=== PATIENT | female | born 1935 | race Caucasian/White ===

== ENCOUNTER 2016-10-19 10:38 | Observation (INO) | payer OTHER ==
[~2016-10-19] VITALS: Ht 160 cm; Wt 57.0 kg
[~2016-10-19 10:38] MED LIST: ALBUTEROL HFA60 DOSE IN; ALENDRONATE SOD70 MG PO; AMOXICILLIN500 M1 PO; CARDIZEM C1 PO; CARDIZEM C2 PO; DURAGESIC100 MCG/H TOP; HYDROXYCHLOROQ200 MG PO; HYDROXYZINE HCL25 MG PO; IPRATROPIUM BROMIDE/ IN; LEVOTHYROXINE25 MCG PO; O2 IN; PLAQUENIL200 M1 PO; PREDNISONE1 MG PO; PROAIR HFA IN; PROZAC10 MG PO; QVAR80 MCG IN; VICODIN EQUIVAL1 TAB PO; WARFARIN SODIU2.5 MG PO
--- NOTE | 2016-10-19 11:32 | DIAGNOSTIC IMAGING REPORT ---
PROCEDURE: XR CHEST 2 VIEW INDICATION: SHORTNESS OF BREATH TECHNIQUE: PA and lateral views. COMPARISON: Chest 07/18/2014 FINDINGS: The lungs are clear. Heart and mediastinum are normal. Tortuous descending aorta. There are fractures of the right lateral ninth and tenth ribs (previously documented).. IMPRESSION: 1. No evidence of acute process.
--- NOTE | 2016-10-19 13:02 | ED ORDER SUMMARY ---
..... Patient: LEONOR CASTANEDA OrderSheet [facility] VisitID: [id number] [place] [address] 80y, F Registration Date/Time: 10/19/2016 ORDER SHEET Weight: 54.8 kg (stated) Allergies: Benadryl, Codeine, Erythromycin GENERAL ORDERS: Chest 2V Urgent (:10/19/2016 PHutchinson DO) (Ack 11:11 Lizeth) (15:59 MCampbell) Chronic Condition Nurse (Continuous) (:10/19/2016 PHutchinson DO) (Ack 11:10 Lizeth) (11:25 Silva R.N.) UA-Culture if indicated Urgent (:10/19/2016 PHutchinson DO) (Ack 11:10 Lizeth) (Cancelled: Unable to [id number] Silva R.N.) Cardiac Panel Stat (:10/19/2016 PHutchinson DO) (Ack 11:10 Arturonandez) (12:19 Silva R.N.) BNP Urgent (:10/19/2016 PHutchinson DO) (Ack 11:10 Arturonandez) (12:19 Silva R.N.) Amylase Urgent (:10/19/2016 PHutchinson DO) (Ack 11:10 Arturonandez) (12:19 Silva R.N.) TSH Urgent (:10/19/2016 PHutchinson DO) (Ack 11:10 Arturonandez) (12:19 Silva R.N.) PT with INR Urgent (:10/19/2016 PHutchinson DO) (Ack 11:09 OHmatinandez) (12:19 Silva R.N.) Urine Drug Screen Urgent (:10/19/2016 PHutchinson DO) (Ack 11:11 Lizeth) (Cancelled: Unable to [id number]:20 Silva R.N.) Lipase Urgent (:10/19/2016 PHutchinson DO) (Ack 11:11 Arturonandez) (12:19 Silva R.N.) Oxygen (2 L/min) (NC) (11:06 10/19/2016 [facility] DO) (Ack 11:10 Lizeth) (11:25 Silva R.N.) EKG - ER Stat (11:10/19/2016 [facility] DO) (Ack 11:10 Lizeth) (12:01 RKaruga) Vitals (11:10/19/2016 [facility] DO) (Ack 11:10 Lizeth) (11:25 Silva R.N.) Pulse oximeter (11:10/19/2016 [facility]) (Ack 11:10 Arturonandez) (11:25 Silva R.N.) Call (Place call to): (Dr Alcaraz) (13:22 10/19/2016 [facility]) (13:25 Lizeth) US Abdomen Limited (No) Urgent (13:29 10/19/2016 [facility]) (Ack 13:31 Lizeth) (14:06 Lizeth) MEDICATION ORDERS: Cogentin IM 1 mg (NOW) (12:14 10/19/2016 [facility]) (Ack 12:20 Silva R.N.) (12:54 Silva R.N.) IV FLUIDS: IV NS : initial bolus 500 mL (1000 mL/hr), then 250 mL/hr for X2 (NOW) (11:06 10/19/2016 [facility]) (Ack 11:25 Silva R.N.) (12:56 Silva R.N.) Ativan IV 0.5 mg (HIGH ALERT MEDICATION, NOW) (13:23 10/19/2016 [facility]) (Ack 13:28 Silva R.N.) (13:35 Silva R.N.) Dilaudid IV 0.5 mg (HIGH ALERT MEDICATION, NOW) (13:34 10/19/2016 [facility]) (Ack 13:35 Silva R.N.) (13:39 Silva R.N.) ORDER SHEET NOTES: [Electronically signed by Missy Troy R.N. (16:21 10/19/2016)] [Electronically signed by Mckay Moran DO (16:31 10/19/2016)] [Electronically locked/signed by Missy Troy R.N. (16:21 10/19/2016)]
--- NOTE | 2016-10-19 13:02 | ED CLINICAL REPORT ---
Clinical Report - Physicians/Mid Levels [facility] [address] [place] [address] 10/19/2016 10:38 Patient: LEONOR CASTANEDA Time Seen: 11:03. Arrived- By ambulance. Historian- patient and EMS personnel. HISTORY OF PRESENT ILLNESS Chief Complaint: DYSPNEA and "Jerking"; Anxious. This started just prior to arrival today and is still present. It was gradual in onset and has been waxing/waning. The dyspnea is described as moderate. (pt noted the symptoms shortly after taking Movantik). No change in baseline sputum, sweating episodes, wheezing, chest discomfort or palpitations. She has had dyspnea on exertion and anxiety. (shortly after the new medicine, she started intermittently "jerking", she c/o dyspnea and is on Oxygen 3L/ NC aways, was just in the office this morning). Similar symptoms previously: Recent medical care: The patient was seen recently in the office (today). Diagnosis: (constipation). ( Pt saw her PCP this am for GI complaints and constipation. She was prescribed Movantik and began noting symptoms shortly therafter). REVIEW OF SYSTEMS The patient has had muscle aches, abdominal pain and joint pain. No eye irritation, nasal discharge, sinus drainage, nausea or vomiting. No diarrhea, black stools, bloody stools, headache or fainting episodes. No difficulty with urination, excessive urination or skin rash. The patient has had constipation. She has had similar symptoms previously. All systems otherwise negative, except as recorded above. PAST HISTORY PCP: Dr Sotelo PROBLEMS: Atrial Fibrillation. Vomiting. Lupus. Dislocated Shoulder. Bronchitis. COPD - Chronic Obstructive Pulmonary Disease. Pneumonia. Rib Fracture. Fecal Impaction. Opiate tolerant - chronic use. SURGERIES: Carpal Tunnel Surgery. Tonsillectomy. Medications: PredniSONE Oral 2 mg, on taper schedule, started 10/05/2016. Combivent Respimat Inhalation (Aerosol Solution 20-100 mcg/act), qid. ASA Oral 81 mg, daily. Lasix Oral 20 mg, daily. Hydroxychloroquine Sulfate Oral 100 mg, daily. Boniva Oral (Tablet 150 mg), monthly. ProAir HFA Inhalation (Aerosol Solution 108 (90 Base) mcg/act) 2 puffs, q 4 hours. Albuterol Sulfate HFA Inhalation 2 puffs, 4x a day. Alendronate Sodium Oral (Tablet 70 mg) 1 tablet, weekly. Diltiazem HCl ER Oral (Capsule Extended Release 24 Hour 240 mg) 1 capsule, daily (pt had not had med yesterday and did not take it until the Afib RVR started toady). Duo Neb. FentaNYL Transdermal 100 mcg/hr, every 72 hours. Hydrocodone-Acetaminophen Oral (Tablet 7.5-325 mg) 1 tablet, 2x a day as needed. Levothyroxine Sodium Oral 25 mcg, daily. Oxygen 3l/nc. Plaquenil Oral 400 mg, daily (discontinued). PROzac Oral 20 mg, daily. Qvar Inhalation (Aerosol Solution 80 mcg/act) 2 puffs , twice daily. Warfarin Sodium Oral 2.5 mg, 4 days a week (1 mg 3 days a week). Allergies: Benadryl. Definite Moderate(anxiety) (if given IV) Codeine. Erythromycin. Definite Moderate(anxiety). SOCIAL HISTORY Former smoker. No alcohol use or drug use. ADDITIONAL NOTES The nursing notes have been reviewed. PHYSICAL EXAM Vital Signs: 10/19/2016 10:44 BP: 159/119. HR: 108. RR: 20. O2 saturation: 93%. Temp: 98.4 F. Pain level now: 0/10. Appearance: Alert. Anxious. Patient in moderate distress. Eyes: No pale conjunctivae or scleral icterus. ENT: Pharynx normal. Uvula midline. No pharyngeal erythema. The mucous membranes are not dry. Neck: Normal inspection. No jugular venous distention. Neck supple. CVS: Normal heart rate and rhythm. Pulses normal. Respiratory: No respiratory distress. Mildly decreased air movement bilaterally. Abdomen: Soft. Moderate tenderness in the upper abdomen and epigastric area. Back: Normal inspection. Skin: Skin warm and dry. Normal skin color. Abnormal skin turgor. Extremities: Extremities exhibit normal ROM. No calf tenderness. Neuro: Oriented X 3. No motor deficit. LABS, X-RAYS, AND EKG EKG: EKG time: (11:23). Normal sinus rhythm. Rate: 90. Occasional unifocal ectopic beats. Premature ventricular contractions. Left atrial enlargement. Normal LEE. Nondiagnostic Q waves in lead V1 and V2 consistent with anteroseptal infarction. Non-specific ST segment / T wave abnormalities. EKG unchanged when compared with prior EKG. (from 27 JUN 2016). The study has been interpreted contemporaneously by me. The EKG appears to be a good tracing. Rhythm Strip #1: Normal sinus rhythm. Regular rhythm. Narrow QRS complexes. Chest X-ray: No acute disease. Views: PA and lateral. Technique: good. The X-rays were interpreted contemporaneously by me. The X-rays were discussed with the radiologist (via PACS note). Abdominal Sonogram: No gallstones. The study was interpreted by the radiologist and limited due to bowel gas. The study was discussed with the radiologist (via tech). Laboratory Tests: CBC w Diff: (GLADIS: 10/19/2016 11:30) ( [facility] [place] 12:03[place] Final results Test Result Flag Units (Reference) WHITE BLOOD COUNT 13.3 H K/uL (4.5-11.5) RED BLOOD COUNT 4.16 M/uL (4.00-5.20) HEMOGLOBIN 12.6 gm/dL (12.0-16.0) HEMATOCRIT 38.7 % (36.0-46.0) MEAN CELL VOLUME 93 fL (80-100) MEAN CORPUSCULAR HGB 30 pg (26-34) MEAN CORPUSCULAR HGB CONC 33 g/dL (31-37) RED CELL DISTRIBUTION WIDTH 13.2 % (11.6-14.8) PLATELET COUNT 238 K/uL (150-400) NEUTROPHIL % 74.7 % (50-75) LYMPH % 18.2 L % (25-40) MONO % 6.1 % (3-14) EOSINOPHIL % 0.5 % (0-4) BASOPHIL % 0.5 % (0-2) PT with INR: (GLADIS: 10/19/2016 11:30) ( [facility] [place] 12:10) Final results Test Result Flag Units (Reference) INR 2.9 H (0.8-1.2) Low Intensity Therapy: INR 1.5-2.0 PT range 18.5-23.1Mod.Intensity Therapy: INR 2.0-3.0 PT range 23.1-31.5High Intensity Therapy: INR 2.5-3.5 PT range 27.4-35.5High Intensity Therapy 2: INR 3.0-4.0 PT range 31.5-39.3 BNP: (GLADIS: 10/19/2016 11:30) ( [facility]cv[place] 10/19/2016 12:24) Final results Test Result Flag Units (Reference) B-TYPE NATRIURETIC PEPTIDE 223 H pg/ml (5-100) CHEM 13 PANEL: (GLADIS: 10/19/2016 11:30) ( MsgRcvd 10/19/2016 12:35) Final results Test Result Flag Units (Reference) GLUCOSE 94 mg/dL (70-110) BUN 20 H mg/dL (7-18) CREATININE 0.8 mg/dL (0.6-1.3) Estimated GFR >60 mL/min Estimated GFR- >60 mL/min Note: Persistent reduction over 3 months in eGFR<60 mL/min/1.73 m2 defines CKD. Patients with eGFR values>=60 mL/min/1.73 m2 may also have CKD if evidence ofpersistent proteinuria. Additional information may be foundat www.kidney.org. SODIUM 140 mmol/L (136-145) POTASSIUM 3.4 L mmol/L (3.5-5.1) CHLORIDE 102 mmol/L (98-107) CARBON DIOXIDE 29 mmol/L (21-32) CALCIUM 9.4 mg/dL (8.5-10.1) TOTAL PROTEIN 7.2 g/dL (6.4-8.2) ALBUMIN 3.7 g/dL (3.3-5.0) BILIRUBIN, TOTAL 0.4 mg/dL (0.0-1.0) ALKALINE PHOSPHATASE 48 U/L (46-116) AST (SGOT) 21 U/L (15-37) ALT (SGPT) 19 U/L (12-78) THYROID STIMULATING HORMONE 1.129 uIU/mL (0.30-3.74) MAGNESIUM 1.8 mg/dL (1.8-2.4) LIPASE 1109 H U/L (73-393) AMYLASE 86 U/L (25-115) CPK 57 U/L (24-260) TROPONIN I <0.05 ng/mL (0.00-1.5) TROPONIN REFERENCE RANGE:<0.1 NEGATIVE0.1-1.5 INDETERMINANT>1.5 POSITIVE . Pulse Oximetry: 10/19/2016 10:44 O2 saturation: 93%. (FIO2-2 liter/min nasal cannula). Interpretation: hypoxemia. PROGRESS AND PROCEDURES Course of Care: Normal Saline 1 liter IVPB given. Ativan 0.5mg IVP given. Cogentin 1 mg IM given. Dilaudid 0.5 mg IVP given. Patient is stable. Physical exam findings are improved. Symptoms much better. Pt with GI complaints including pain and constipation. Started Movantik today with resultant "jerking", anxiety, dyspnea. Most c/w dystonic reaction and / or opiate withdrawal. She did have a large BM in the ED during her stay. She also has significant lipase elevation with moderate epigastric pain - c/w pancreatitis (but amylase normal). She was given low dose ativan and dilaudid with resolution of her remaining symptoms after minimal effect from Cogentin - she refused benadryl stating she has an allergy to it. Discussed case with hospitalist, (Coye call placed 13:23). Reviewed test results. Agreed upon treatment plan. Patient/family counseled. Old ED records reviewed. Observation orders written. Disposition: Observation in Acute Care. CLINICAL IMPRESSION Stable COPD. Acute idiopathic pancreatitis. Essential hypertension. Dystonic drug reaction. to Movantik. INSTRUCTIONS Follow-up: Screening today revealed the patient's blood pressure to be in the hypertensive range. The patient should follow up with a primary care provider for blood pressure management. (Electronically signed by Mckay Moran DO 10/19/2016 16:31)
--- NOTE | 2016-10-19 13:02 | ED ORDER SUMMARY ---
..... Patient: LEONOR CASTANEDA OrderSheet [facility] VisitID: [id number] [place] [address] 80y, F Registration Date/Time: 10/19/2016 ORDER SHEET Weight: 54.8 kg (stated) Allergies: Benadryl, Codeine, Erythromycin GENERAL ORDERS: Chest 2V Urgent (:10/19/2016 PHutchinson DO) (Ack 11:11 Lizeth) (15:59 MCampbell) Biscuit Packer (Continuous) (:10/19/2016 PHutchinson DO) (Ack 11:10 Lizeth) (11:25 Silva R.N.) UA-Culture if indicated Urgent (:10/19/2016 PHutchinson DO) (Ack 11:10 Lizeth) (Cancelled: Unable to [id number]:20 Silva R.N.) Cardiac Panel Stat (:10/19/2016 PHutchinson DO) (Ack 11:10 Arturonandez) (12:19 Silva R.N.) BNP Urgent (:10/19/2016 PHutchinson DO) (Ack 11:10 Arturonandez) (12:19 Silva R.N.) Amylase Urgent (:10/19/2016 PHutchinson DO) (Ack 11:10 Arturonandez) (12:19 Silva R.N.) TSH Urgent (:10/19/2016 PHutchinson DO) (Ack 11:10 Arturonandez) (12:19 Silva R.N.) PT with INR Urgent (:10/19/2016 PHutchinson DO) (Ack 11:09 OHmatinandez) (12:19 Silva R.N.) Urine Drug Screen Urgent (:10/19/2016 PHutchinson DO) (Ack 11:11 Lizeth) (Cancelled: Unable to Mhukymn19:20 Silva R.N.) Lipase Urgent (:10/19/2016 PHutchinson DO) (Ack 11:11 Arturonandez) (12:19 Silva R.N.) Oxygen (2 L/min) (NC) (11:06 10/19/2016 [facility] DO) (Ack 11:10 Lizeth) (11:25 Silva R.N.) EKG - ER Stat (11:10/19/2016 [facility] DO) (Ack 11:10 Lizeth) (12:01 RKaruga) Vitals (11:10/19/2016 [facility] DO) (Ack 11:10 Lizeth) (11:25 Silva R.N.) Pulse oximeter (11:10/19/2016 [facility]) (Ack 11:10 Arturonandez) (11:25 Silva R.N.) Call (Place call to): (Dr Alcaraz) (13:22 10/19/2016 [facility]) (13:25 Lizeth) US Abdomen Limited (No) Urgent (13:29 10/19/2016 [facility]) (Ack 13:31 Lizeth) (14:06 Lizeth) MEDICATION ORDERS: Cogentin IM 1 mg (NOW) (12:14 10/19/2016 [facility]) (Ack 12:20 Silva R.N.) (12:54 Silva R.N.) IV FLUIDS: IV NS : initial bolus 500 mL (1000 mL/hr), then 250 mL/hr for X2 (NOW) (11:06 10/19/2016 [facility]) (Ack 11:25 Silva R.N.) (12:56 Silva R.N.) Ativan IV 0.5 mg (HIGH ALERT MEDICATION, NOW) (13:23 10/19/2016 [facility]) (Ack 13:28 Silva R.N.) (13:35 Silva R.N.) Dilaudid IV 0.5 mg (HIGH ALERT MEDICATION, NOW) (13:34 10/19/2016 [facility]) (Ack 13:35 Silva R.N.) (13:39 Silva R.N.) ORDER SHEET NOTES: [Electronically signed by Missy Troy R.N. (16:21 10/19/2016)] [Electronically signed by Mckay Moran DO (16:31 10/19/2016)] [Electronically locked/signed by Missy Troy R.N. (16:21 10/19/2016)]
--- NOTE | 2016-10-19 13:02 | ED NURSING NOTES ---
Clinical Report - Nurses [facility] [address] [place] [address] 10/19/2016 10:38 [id number] TRI[facility] Triage time 10:44. Acuity: LEVEL 3. Chief Complaint: (took a dose of MOVANTIK 25 mg). JORDANA COMA SCORE: One[place] Coma Scale: 15- eyes open spontaneously (4); best verbal response- oriented x 4 (5); best motor response- obeys commands (6). --10:52 Missy Troy R.N. 10:44 10/19/16. BP: 159/119. HR: 108. RR: 20. O2 saturation: 93% on room air. Temp: 98.4 F (oral). Pain level now: 0/10. --10:52 Missy Troy R.N. Chief Complaint: (TREMORS, "on fire inside"). --10:53 Missy Troy R.N. Weight: 54.8 kg stated. Height/Length: 63 inches Per Patient. BMI: 21.4. --10:50 Missy Troy R.N. Medications Albuterol Sulfate HFA Inhalation 2 puffs, 4x a day. Alendronate Sodium Oral (Tablet 70 mg) 1 tablet, weekly. Diltiazem HCl ER Oral (Capsule Extended Release 24 Hour 240 mg) 1 capsule, daily (pt had not had med yesterday and did not take it until the Afib RVR started toady). Duo Neb. FentaNYL Transdermal 100 mcg/hr, every 72 hours. Hydrocodone-Acetaminophen Oral (Tablet 7.5-325 mg) 1 tablet, 2x a day as needed. Levothyroxine Sodium Oral 25 mcg, daily. Oxygen 3l/nc. Plaquenil Oral 400 mg, daily (discontinued). PROzac Oral 20 mg, daily. Qvar Inhalation (Aerosol Solution 80 mcg/act) 2 puffs , twice daily. Warfarin Sodium Oral 2.5 mg, 4 days a week (1 mg 3 days a week). --10:46 Missy Troy R.N. ProAir HFA Inhalation (Aerosol Solution 108 (90 Base) mcg/act) 2 puffs, q 4 hours. --11:19 Missy Troy R.N. Boniva Oral (Tablet 150 mg), monthly. --11:20 Missy Troy R.N. Hydroxychloroquine Sulfate Oral 100 mg, daily. --11:21 Missy Troy R.N. Lasix Oral 20 mg, daily. --11:22 Missy Troy R.N. ASA Oral 81 mg, daily. --11:22 Missy Troy R.N. Combivent Respimat Inhalation (Aerosol Solution 20-100 mcg/act), qid. --11:23 Missy Troy R.N. PredniSONE Oral 2 mg, on taper schedule, started 10/05/2016. --11:23 Missy Troy R.N. The following entry was struck and corrected by Missy Troy R.N., 11:04 (10/19/16) Reason for correction - other(correction). <<STRICKEN ENTRY-- Plaquenil Oral 400 mg, daily. --10:46 Missy Troy R.N. --END STRIKE>>. Medication/allergy information source: other. --10:52 Missy Troy R.N. Allergies Benadryl. Definite Moderate(anxiety) (if given IV) Codeine. Erythromycin. Definite Moderate(anxiety) --10:46 Missy Troy R.N. History Arrived by EMS. Historian: EMS and patient. Primary physician (Deepak). This started today. ( shortly after the new medicine, she started intermittently "jerking", she c/o dyspnea and is on Oxygen 3L/ NC aways, was just in the office this morning). SOCIAL HX: Former smoker ("years ago"). No alcohol use or drug use. FALL RISK ASSESSMENT: Fall risk assessment completed. Risk factors identified include patient impairment of mobility. Fall interventions initiated. Patient placed on stretcher. Side rails up x2. Brakes on Bed in low position. FUNCTIONAL ASSESSMENT: Functional assessment performed: independent with the activities of daily living; uses walker- this mobility impairment is an ongoing problem. --10:52 Missy Troy R.N. PROBLEMS: Atrial Fibrillation. Vomiting. Lupus. Dislocated Shoulder. Bronchitis. COPD - Chronic Obstructive Pulmonary Disease. Pneumonia. Rib Fracture. Fecal Impaction. --10:48 Missy Troy R.N. ADDITIONAL SURGERIES: Carpal Tunnel Surgery. Tonsillectomy. --10:48 Missy Troy R.N. Assessment GENERAL / NEURO / PSYCH: The patient is awake and alert and is oriented and cooperative. She appears anxious and agitated and has good eye contact. RESPIRATORY: Respirations not labored. SKIN: Skin is warm and dry. --10:52 Missy Troy R.N. Interventions ID and allergy band on patient. To treatment room. --10:52 Missy Troy R.N. PHYSICAL ASSESSMENT 10:55 10/19/16. To room via stretcher. Patient gowned. GENERAL / NEURO / PSYCH: The patient is awake and alert, is oriented and appears anxious and agitated. She has good eye contact. RESPIRATORY: Respirations not labored. SKIN: Skin is warm and dry. --10:55 Missy Troy R.N. NURSING PROGRESS NOTES 10:56 10/19/16. Oxygen administered by nasal cannula at 3 liters (pt asking for oxygen as she is on it all the time). Patient gowned. Head of bed elevated. Call light placed in reach. Side rails up x 2. Bed placed in lowest position. Brakes of bed on. --10:56 Missy Troy R.N. 11:53 10/19/2016 Site #1 started via IV in the right forearm with an 20g angiocath, with aseptic technique and good blood return; one attempt. Blood drawn: rainbow set and pediatric tubes. Labeled in the presence of the patient and sent to the lab. Saline lock flushed with 10 mL saline. --11:53 Missy Troy R.N. 11:53 attempted femcath x2 with assist of 2 RN's anatomy is distorted by a "growth", 2 different RN's attempted and were unsuccessful. --12:16 Missy Troy R.N. 12:16 pt was assisted to BSC and had moderate, amount of soft brown BM, cleaned and assisted back to bed. --12:17 Missy Troy R.N. 12:18 10/19/16. BP: 164/71. HR: 98. RR: 18. --12:52 Missy Troy R.N. 12:32 10/19/2016 Site #1 removed. Bandage applied (pt pulled out IV #1). --12:57 Missy Troy R.N. 12:38 10/19/2016 Cogentin (Benztropine Mesylate) IM 1 mg given. Given in the left anterior lateral thigh. Allergies verified, confirmed 5 rights and sedative warning given to the patient. --12:54 Missy Troy R.N. 12:51 10/19/2016 Site #2 started via IV in the right antecubital space with an 20g angiocath, with aseptic technique and good blood return; one attempt. --12:56 Missy Troy R.N. 12:51 10/19/2016 Started bag #1 1000 mL IV Fluids IV NS (Saline); at 1000 mL/hr over 30 minute(s) via site #2 via IV pump. --12:56 Missy Troy R.N. 12:52 10/19/16. Reassessment after oxygen and fluids administered. Overall patient status (also has intermittent episodes of diaphoresis, she c/o being "hot", then in the next moment lies back, then sits straight up in bed and c/o "my back is on fire", it only lasts a few seconds). ( continues to have intermittent "jerking" motions, she is restless, denies pain). GENERAL / NEURO / PSYCH: Alert. Appears anxious. Oriented X 4. ( tries to be cooperative). RESPIRATORY: Respirations not labored. SKIN: Skin is warm and dry. --12:52 Missy Troy R.N. EKG time: (11:23 AM). EKG was performed by a tech and shown to the ED physician. --12:55 Angelica Amador 13:16 10/19/16. Assisted patient to bedside commode and back to bed; tolerated well. --13:16 Kaylie Jara R.N. 13:16 10/19/16. ( Pt's spouse arrived.). --13:16 Kaylie Jara R.N. ( Pt pulled off monitor leads, left off for now as it bothers her. Spouse wants to leave, encouraged to stay.). --13:30 Kaylie Jara R.N. 13:31 10/19/2016 IV Fluids IV NS via IV site #2 Rate Changed: bag #1 decreased to 250 mL/hr via IV pump. IV patency established. IV site checked: no pain, redness, or swelling. IV flushed thoroughly. Confirmed 5 Rights. --13:31 Kaylie Jara R.N. 13:35 10/19/2016 Ativan (LORazepam) IVP 0.5 mg given over 1 minute(s) via site #2. Allergies verified, confirmed 5 rights and sedative warning given to the patient. IV patency established. IV site checked: no pain, redness, or swelling. IV flushed thoroughly pre- and post-medication administration. IVP given by RN. --13:35 Missy Troy R.N. 13:39 10/19/2016 Dilaudid (HYDROmorphone HCl PF) IVP 0.5 mg given over 1 minute(s) via site #2. Allergies verified, confirmed 5 rights and sedative warning given to the patient. IV patency established. IV site checked: no pain, redness, or swelling. IV flushed thoroughly pre- and post-medication administration. IVP given by RN. --13:39 Missy Troy R.N. 13:42 10/19/16. Reassessment after fluids administered and medication administered. Overall patient status is improved- she states feels the same (pt says she doesn't feel any better, but she is calmer, the "twitching" is less frequent and she appears to doze for short periods). RESPIRATORY: No respiratory distress. SKIN: Skin is warm and dry. --13:42 Missy Troy R.N. 13:43 US tech @ bedside. --13:43 Missy Troy R.N. 14:11 US done; and she calmer, able to rest with eyes closed for short periods of time, when wakened though, she starts the "jerking" again. Reassessment after fluids administered, procedure and medication administered. Overall patient status is improved- she states feels the same. RESPIRATORY: No respiratory distress. SKIN: Skin is warm and dry. --14:16 Missy Troy R.N. 14:10 10/19/16. BP: 169/98. HR: 109. RR: 22. O2 saturation: 100% on nasal cannula at 3 liters/minute. Pain level now: 0/10. --14:16 Missy Troy R.N. 14:53 10/19/16. BP: 144/96. HR: 100. RR: 10. O2 saturation: 100% on room air. --14:55 Missy Troy R.N. 14:55 10/19/16. Lights dimmed. --14:55 Missy Troy R.N. 15:07 10/19/2016 Site #[address] upon admission[address] Converted to saline lock and flushed with 10 mL saline; flushes easily. --15:07 Missy Troy R.NAry 15:09 10/19/16. Reassessment after fluids administered and medication administered. She is sleeping. Overall patient status is improved- she states feels better (pt is finally sleeping, no "jerking" now, rests quietly). RESPIRATORY: No respiratory distress. SKIN: Skin is warm and dry. --15:09 Missy Troy R.N. 14:58 10/19/16. BP: 128/50. HR: 75. RR: 18. O2 saturation: 100%. Pain level now: 0/10. --15:09 Missy Troy R.NAry 16:02 10/19/16. Reassessment after fluids administered, procedure and medication administered. She is resting quietly. Overall patient status is improved- she states feels better (pt rouses to touch and verbal, pt is very drowsy but responds to verbal commands, she squeezed my fingers, explosives detonator equal, lifted each leg and she bent her knees, put her feet on the bed and pushed herself to assist in repositioning her, nods her head in response to questions, denies pain). RESPIRATORY: No respiratory distress. SKIN: Skin is warm and dry. --16:05 Missy Troy R.N. DISPOSITION / DISCHARGE Condition at departure: improved. Admitted to Acute Care. Transported via stretcher by tech with IV and O2. Report was given to a nurse via a phone call. All questions were answered. Report was acknowledged. ( transferred to floor with SL intact). Patient's personal items; items were transported with the patient. --15:58 Missy Troy R.N. 15:51 10/19/16. BP: 150/53. HR: 78. RR: 18. O2 saturation: 100% on nasal cannula at 3 liters/minute. Pain level now: 0/10. --15:58 Missy Troy R.N. <<STRICKEN ENTRY-- Departure time: 1405. --16:09 Missy Troy R.N. --END STRIKE>> Correction --16:19 Missy Troy R.N. Departure time: 1605. --16:19 Missy Troy R.N. Locked/Released at 10/19/2016 16:21 by Missy Troy R.N.
--- NOTE | 2016-10-19 14:07 | Progress Note ---
Subjective General Admission History and Physical Examination Patient Name: Adri Soares Admission Date: October 19, 2016 Primary Care Provider: Grady Sotelo M.D. Attending Physician: David Alcaraz M.D. Admitting Physician: David Alcaraz M.D. Code Status: Full Code Room: 203-A SUBJECTIVE Historian: Patient Reliability: Fair Chief Complaint: Shortness of breath, tremors History of Present Illness: The patient is a 80-year-old white female with a significant past medical history of SLE, degenerative joint disease, DVT/pulmonary embolism, paroxysmal atrial fibrillation, carpal tunnel syndrome, who presented to [facility] emergency department on the day of admission with complaints of shortness of breath, tremors following taking her first dose of Movantik. [facility] ER evaluation was consistent with probable adverse drug reaction to Movantik, elevated lipase rule out pancreatitis. Secondary to the above, the patient was admitted by David Alcaraz M.D. for further evaluation and treatment. The history of present illness began on the day of admission when the patient was given a Movantik secondary to opiate-induced constipation. Following taking Movantik 25 mg the patient developed diffuse shakes, diaphoresis, nausea, shortness of breath with associated bowel movements 2 in the emergency department. The patient required narcotic analgesics and benzodiazepines to improve symptomatology. ER evaluation showed elevated lipase with normal amylase. Abdominal ultrasound was noncontributory. Secondary to the above the patient was admitted with a diagnosis of adverse drug reaction to Movantik, elevated lipase rule out early pancreatitis, COPD for further evaluation and treatment. PAST MEDICAL HISTORY Illnesses: 1. Paroxysmal atrial fibrillation 2. SLE 3. COPD 4. History of pulmonary embolism 5. Chronic anticoagulation 6. Chronic constipation 7. Hypothyroidism 8. Chronic pain with chronic opiate therapy 9. Osteoporosis Allergies: 1. Benadryl 2. Erythromycin 3. Codeine Medications: 1. Albuterol MDI 2 inhalations 4 times a day 2. Combivent Respimat one inhalation 4 times a day when not using DuoNeb 3. Cardizem CD 240 mg by mouth daily 4. DuoNeb one via nebulizer every 6 hours when necessary shortness of breath 5. Duragesic 100 g every 3 days 6. Vicodin 7.5/325 mg 1 by mouth twice a day when necessary for pain 7. Synthroid 0.025 mg by mouth daily 8. Prozac 20 mg by mouth daily 9. Qvar 80 g 2 inhalations twice a day 10. Coumadin 2.5 mg orally 4 days a week and 1 mg orally 3 days week 11. Boniva 150 mg by mouth monthly 12. Hydroxychloroquine 100 mg by mouth daily 13. Lasix 20 mg by mouth daily 14. Aspirin 81 mg by mouth daily 15. Prednisone 4 mg by mouth daily Surgery: 1. Carpal tunnel release bilaterally 2. Bilateral IOL 3. T&A as a child Injuries: 1. Shoulder dislocation. Hospitalizations: 1. For above mentioned medical problems and surgery. FAMILY HISTORY Parents: 1. Father, Jose, , 99, "old age", 2. Mother, Yadira, , 76, esophageal CA Siblings: 1. Male, Jose, living, 76, PTSD, cancer type unknown 2. Female, Libertad, living, 71, healthy Children: 1. None Other significant family history: No significant SOCIAL HISTORY 1. Marital Status: 2. Cheondoism: Ep[employer] 3. Education: High school-12 years, one year vocational education-[employer] school 4. Employment History: Worked in [employer], Disabled 1994 secondary to SLE 5. Occupational health exposures: None HABITS 1. Tobacco: 30 pack years, stopped 1992 2. Drugs: None 3. Alcohol: One ounce per week 4. Caffeine: One 12 ounce soft drink per day HEALTH SUPERVISION Item/Test 1. Vision screen: 2015 2. Cholesterol Profile: 2015 3. PSA: Not applicable 4. GITA: Not applicable 5. FOBT: Unknown 6. Blood Glucose: 2016 7. Colonoscopy: 2005 8. History and physical exam: 2015 9. Audiogram: Unknown 10. Pap/pelvic examination: No recent 11. Mammogram: No recent IMMUNIZATIONS: 1. Pneumococcal: 2015 2. Influenza: 2015 3. Tetanus: 2014 ADVANCED DIRECTIVES: 1. Living well: Yes 2. POLST: No 3. Code Status: Full Code 4. Durable Power Statistics Manager Health care: Yes, spouse 5. Donor card: No REVIEW OF SYSTEMS Remarkable for those things stated in the history of present illness and past medical history. Seventeen point review of system completed with the following notable findings: Eyes: Cataracts status post IOL, visual loss with corrective lenses Urinary: Urinary incontinence Gastrointestinal: Constipation Psychological: Depression Physical Exam Vital Signs / I&Os Blood pressure: 164/71 mmHg Heart rate: 98/minute Respiratory rate: 18/minute Temperature: 98.4 Fahrenheit orally Pulse oximetry: 93% on room air General Appearance Alert, Oriented X3, Cooperative, No acute distress HEENT Atraumatic, PERRLA, EOMI, slightly dry mucous membranes Lungs scattered rhonchi, decreased air movement bilaterally. Minimal expiratory wheezes Neck Supple, No JVD Cardiovascular Regular rate and rhythm, Normal S1 and S2, No murmurs, gallops, rubs Abdomen Normal bowel sounds, Soft, minimal diffuse tenderness. No epigastric tenderness noted. Extremities No cyanosis, No clubbing, No edema, Normal pulses Neurological Cranial nerves intact, Strength 5/5 x4 ext's, No lateralizing signs Psych/Mental Status Mental status normal, Mood normal LAB Results Laboratory Tests 10/19 10/19 10/19 1130 1130 1106 Chemistry Plasma Sodium (136 - 145 mmol/L) 140 Plasma Potassium (3.5 - 5.1 mmol/L) 3.4 Plasma Chloride (98 - 107 mmol/L) 102 CO2 (Enzymatic) (21 - 32 mmol/L) 29 BUN (7 - 18 mg/dL) 20 Creatinine (0.6 - 1.3 mg/dL) 0.8 Est GFR ( Amer) (mL/min) >60 Est GFR (Non-Af Amer) (mL/min) >60 Glucose (70 - 110 mg/dL) 94 Plasma Calcium (8.5 - 10.1 mg/dL) 9.4 Plasma Magnesium (1.8 - 2.4 mg/dL) 1.8 Total Bilirubin (0.0 - 1.0 mg/dL) 0.4 AST (15 - 37 U/L) 21 ALT (12 - 78 U/L) 19 Alkaline Phosphatase (46 - 116 U/L) 48 Creatine Kinase (24 - 260 U/L) 57 Troponin (0.00 - 1.5 ng/mL) <0.05 B-Natriuretic Peptide (5 - 100 pg/ml) 223 Total Protein (6.4 - 8.2 g/dL) 7.2 Albumin (3.3 - 5.0 g/dL) 3.7 Amylase (25 - 115 U/L) 86 Cancelled Lipase (73 - 393 U/L) 1109 Cancelled TSH 3rd Generation (0.30 - 3.74 uIU/mL) 1.129 Cancelled Coagulation INR (0.8 - 1.2) 2.9 Hematology WBC (4.5 - 11.5 K/uL) 13.3 RBC (4.00 - 5.20 M/uL) 4.16 Hgb (12.0 - 16.0 gm/dL) 12.6 Hct (36.0 - 46.0 %) 38.7 MCV (80 - 100 fL) 93 MCH (26 - 34 pg) 30 RDW (11.6 - 14.8 %) 13.2 Neut % (Auto) (50 - 75 %) 74.7 Lymph % (Auto) (25 - 40 %) 18.2 [place] % (Auto) (3 - 14 %) 6.1 Eos % (Auto) (0 - 4 %) 0.5 Baso % (Auto) (0 - 2 %) 0.5 Plt Count, EDTA (150 - 400 K/uL) 238 PUBS MCHC (31 - 37 g/dL) 33 Imaging Chest X-Ray: IMPRESSION: 1. No evidence of acute process. Dictated by: KYLEE HAMMOND MD D: KB;10/19/16 0721 Assessment and Plan Problem List 1. Serum lipase elevation Status Acute Onset Date Unknown Plan -The patient presents with elevation of serum lipase -Lipase elevated but less than 3 times upper limit of normal. Amylase normal -Recheck this p.m. -Abdominal ultrasound per ER physician-Dr. Moran -Check lipid profile -The patient does give history of abdominal discomfort but no severe abdominal pain. -Monitor 2. COPD (chronic obstructive pulmonary disease) Status Chronic Onset Date Unknown Plan -Patient with history of COPD-O2 dependent -Continue supplemental oxygen -DuoNeb, albuterol, Qvar, and prednisone. -Monitor 3. Chronic anticoagulation Status Chronic Onset Date Unknown Plan -Patient with history of chronic anticoagulation -Continue Coumadin at present dosage schedule -INR therapeutic at 2.9 -Monitor daily INR 4. Adverse drug reaction Status Acute Onset Date Unknown Plan -Patient presents with findings consistent with adverse drug reaction to Movantik. -Hold Movantik -Consider Movantik if necessary with reduced dose to 12.5 mg. This will be followed by the patient's PCP on an outpatient basis 5. Hypokalemia Status Acute Onset Date Unknown Plan -Patient presents with mild hypokalemia. -IV fluids with potassium supplementation -KCl 40 mEq IV 1 -Monitor 6. Paroxysmal atrial fibrillation Status Chronic Onset Date Unknown Plan -Patient with history of paroxysmal atrial fibrillation -Patient currently in sinus rhythm -Continue Cardizem CD 240 mg by mouth daily -Monitor -Continue anticoagulation Current status: Fair, unstable Anticipated discharge date: Anticipated discharge in 24 hours Anticipated discharge placement: Home Patient care time: Time spent in chart review, patient interview, physical exam, CPOE, and care documentation: Greater than 70 minutes Visit to patient today: 3 Complexity of care: High E&M Codes Admission: Obsv-Comp/High/[id number]
--- NOTE | 2016-10-19 14:43 | DIAGNOSTIC IMAGING REPORT ---
PROCEDURE: US ABDOMEN ULTRASOUND-LIMITED INDICATION: RUQ PAIN TECHNIQUE: Dotson scale and color Doppler sonographic images were obtained of the right upper quadrant. COMPARISON: CT abdomen pelvis 07/10/2014 FINDINGS: Technically challenging exam secondary to the patient's inability to cooperate. The liver is normal in size, contour, and echotexture. No definite mass or biliary dilatation. The gallbladder is grossly normal without stones or sludge. Normal wall thickness at approximately 2.3 mm. No obvious pericholecystic fluid. A Chapin's sign was not able to be elicited, patient heavily medicated. The visible portion of the inferior vena cava, abdominal aorta, and portal vein appear normal with appropriate direction of flow in the portal vein. The right kidney is normal measuring 11.3 cm. No free fluid in the right upper quadrant. IMPRESSION: 1. Technically challenging, limited study secondary to patient's inability to cooperate. 2. No obvious abnormalities. 3. Findings discussed by the technologist with the emergency room provider.
[2016-10-19 16:28] VITALS: BP 146/66
--- NOTE | 2016-10-19 16:32 | ED MAR SUMMARY ---
..... Medication Administration Record [facility] [address] [place] [address] Patient: LEONOR CASTANEDA Visit ID: [id number] 80y, F Weight: 54.8 kg Height/Length: 63 in BMI: 21.4 ALLERGIES: Benadryl, Codeine, Erythromycin Given 12:38 10/19/2016 Missy Troy R.N. Medication Administered: COGENTIN [IM] (BENZTROPINE MESYLATE), Dose: 1 mg IM. Medication Ordered: Cogentin IM 1 mg (NOW). Start 12:51 10/19/2016 Missy Troy R.N. Medication Administered: IV NS (SALINE), Dose: IV Fluids over 30 minute(s), Rate: 1000 mL/hr, Dispensed: 1000 mL bag, Site: #2 right AC. Medication Ordered: IV NS : initial bolus 500 mL (1000 mL/hr), then 250 mL/hr for X2 (NOW). Given 13:35 10/19/2016 Missy Troy R.N. Medication Administered: ATIVAN [IVP] (LORAZEPAM), Dose: 0.5 mg IVP over 1 minute(s), Site: #2 right AC. Medication Ordered: Ativan IV 0.5 mg (HIGH ALERT MEDICATION, NOW). Given 13:39 10/19/2016 Missy Troy R.N. Medication Administered: DILAUDID [IVP] (HYDROMORPHONE HCL PF), Dose: 0.5 mg IVP over 1 minute(s), Site: #2 right AC. Medication Ordered: Dilaudid IV 0.5 mg (HIGH ALERT MEDICATION, NOW).
--- NOTE | 2016-10-19 16:32 | ED MAR SUMMARY ---
..... Medication Administration Record [facility] [address] [place] [address] Patient: LEONOR CASTANEDA Visit ID: [id number] 80y, F Weight: 54.8 kg Height/Length: 63 in BMI: 21.4 ALLERGIES: Benadryl, Codeine, Erythromycin Given 12:38 10/19/2016 Missy Troy R.N. Medication Administered: COGENTIN [IM] (BENZTROPINE MESYLATE), Dose: 1 mg IM. Medication Ordered: Cogentin IM 1 mg (NOW). Start 12:51 10/19/2016 Missy Troy R.N. Medication Administered: IV NS (SALINE), Dose: IV Fluids over 30 minute(s), Rate: 1000 mL/hr, Dispensed: 1000 mL bag, Site: #2 right AC. Medication Ordered: IV NS : initial bolus 500 mL (1000 mL/hr), then 250 mL/hr for X2 (NOW). Given 13:35 10/19/2016 Missy Troy R.N. Medication Administered: ATIVAN [IVP] (LORAZEPAM), Dose: 0.5 mg IVP over 1 minute(s), Site: #2 right AC. Medication Ordered: Ativan IV 0.5 mg (HIGH ALERT MEDICATION, NOW). Given 13:39 10/19/2016 Missy Troy R.N. Medication Administered: DILAUDID [IVP] (HYDROMORPHONE HCL PF), Dose: 0.5 mg IVP over 1 minute(s), Site: #2 right AC. Medication Ordered: Dilaudid IV 0.5 mg (HIGH ALERT MEDICATION, NOW).
--- NOTE | 2016-10-19 16:32 | ED MED RECONCILIATION SUMMARY ---
Patient: LEONOR CASTANEDA Medication Reconciliation Report [facility] VisitID: [id number] [address] [place] [address] 80y, F Registration Date/Time: 10/19/2016 Weight: 54.8 kg Height/Length: 63 in. BMI: 21.4 ALLERGIES: Benadryl, Codeine, Erythromycin The patient's Home Medications are listed below: THE FOLLOWING MEDICATIONS NEED TO BE RECONCILED: Albuterol Sulfate HFA Inhalation 2 puffs, 4x a day Alendronate Sodium Oral (70 mg) 1 tablet, weekly ASA Oral 81 mg, daily Boniva Oral (150 mg), monthly Combivent Respimat Inhalation (20-100 mcg/act), qid Diltiazem HCl ER Oral (240 mg) 1 capsule, daily, pt had not had med yesterday and did not take it until the Afib RVR started toady Duo Neb FentaNYL Transdermal 100 mcg/hr, every 72 hours Hydrocodone-Acetaminophen Oral (7.5-325 mg) 1 tablet, 2x a day Hydroxychloroquine Sulfate Oral 100 mg, daily Lasix Oral 20 mg, daily Levothyroxine Sodium Oral 25 mcg, daily Oxygen 3l/nc Plaquenil Oral 400 mg, daily, discontinued PredniSONE Oral 2 mg, on taper schedule ProAir HFA Inhalation (108 (90 Base) mcg/act) 2 puffs, q 4 hours PROzac Oral 20 mg, daily Qvar Inhalation (80 mcg/act) 2 puffs , twice daily Warfarin Sodium Oral 2.5 mg, 4 days a week, 1 mg 3 days a week The source(s) of the original Home Medication information: other The following Medications were given to the patient in the Emergency Department: Cogentin [IM] IM 1 mg, administered: 10/19/2016 12:38:00 PM IV NS IV Fluids bolus 0, then 1000 mL/hr, administered: 10/19/2016 12:51:00 PM Ativan [IVP] IVP 0.5 mg, administered: 10/19/2016 1:35:00 PM Dilaudid [IVP] IVP 0.5 mg, administered: 10/19/2016 1:39:00 PM The following Medications were prescribed to the patient: None.
--- NOTE | 2016-10-19 16:32 | ED MED RECONCILIATION SUMMARY ---
Patient: LEONOR CASTANEDA Medication Reconciliation Report [facility] VisitID: [id number] [address] [place] [address] 80y, F Registration Date/Time: 10/19/2016 Weight: 54.8 kg Height/Length: 63 in. BMI: 21.4 ALLERGIES: Benadryl, Codeine, Erythromycin The patient's Home Medications are listed below: THE FOLLOWING MEDICATIONS NEED TO BE RECONCILED: Albuterol Sulfate HFA Inhalation 2 puffs, 4x a day Alendronate Sodium Oral (70 mg) 1 tablet, weekly ASA Oral 81 mg, daily Boniva Oral (150 mg), monthly Combivent Respimat Inhalation (20-100 mcg/act), qid Diltiazem HCl ER Oral (240 mg) 1 capsule, daily, pt had not had med yesterday and did not take it until the Afib RVR started toady Duo Neb FentaNYL Transdermal 100 mcg/hr, every 72 hours Hydrocodone-Acetaminophen Oral (7.5-325 mg) 1 tablet, 2x a day Hydroxychloroquine Sulfate Oral 100 mg, daily Lasix Oral 20 mg, daily Levothyroxine Sodium Oral 25 mcg, daily Oxygen 3l/nc Plaquenil Oral 400 mg, daily, discontinued PredniSONE Oral 2 mg, on taper schedule ProAir HFA Inhalation (108 (90 Base) mcg/act) 2 puffs, q 4 hours PROzac Oral 20 mg, daily Qvar Inhalation (80 mcg/act) 2 puffs , twice daily Warfarin Sodium Oral 2.5 mg, 4 days a week, 1 mg 3 days a week The source(s) of the original Home Medication information: other The following Medications were given to the patient in the Emergency Department: Cogentin [IM] IM 1 mg, administered: 10/19/2016 12:38:00 PM IV NS IV Fluids bolus 0, then 1000 mL/hr, administered: 10/19/2016 12:51:00 PM Ativan [IVP] IVP 0.5 mg, administered: 10/19/2016 1:35:00 PM Dilaudid [IVP] IVP 0.5 mg, administered: 10/19/2016 1:39:00 PM The following Medications were prescribed to the patient: None.
--- NOTE | 2016-10-19 16:32 | ED DISCHARGE INSTRUCTIONS ---
Patient: LEONOR CASTANEDA General Instructions [facility] VisitID: [id number] [place] [address] 80y, F Registration Date/Time: 10/19/2016 Stable COPD. Acute idiopathic pancreatitis. Essential hypertension. Dystonic drug reaction. to Movantik. INSTRUCTIONS Follow-up: Screening today revealed the patient's blood pressure to be in the hypertensive range. The patient should follow up with a primary care provider for blood pressure management. ADDITIONAL INFORMATION High Blood Pressure --Established High Blood Pressure (Hypertension) is a chronic disease. The cause is unknown in most cases. It can usually be controlled with lifestyle changes and/or medicines. Symptoms of high blood pressure may include headache, dizziness, visual changes, chest pain and shortness of breath. Sometimes it causes no symptoms at all. However, even if there are no symptoms, untreated high blood pressure increases the risk of heart attack, also known as acute myocardial infarction, or AMI, and stroke. It is a serious health risk and should not be ignored. A normal blood pressure is 120/80 or less. The first (top) number is the "systolic" pressure. The second (bottom) number is the "diastolic" pressure. Hypertension exists when either the top number is 140 or higher, OR the bottom number is 90 or higher on repeated measurements. Home Care: All patients with high blood pressure should do the following to lower their pressure. If you are on medicines, then these methods may reduce or eliminate your need for medicines in the future. Begin a weight loss program if you are overweight. Reduce your salt intake. Avoid high salt foods (olives, pickles, smoked meats, salted potato chips, etc.). Do not add salt to your food at the table. Use only small amounts of salt when cooking. Begin an exercise program. Discuss with your doctor what type of exercise program would be best for you. It doesn't have to be difficult. Even brisk walking for 20 minutes three times a week is a good form of exercise. Avoid medicines which contain heart stimulants. This includes many cold and sinus decongestant pills and sprays as well as diet pills. Check the warnings about hypertension on the label. Stimulants such as amphetamine or cocaine could be lethal for someone with hypertension. Never take these. Limit your caffeine intake or switch to caffeine-free products. Stop smoking. If you are a long-time smoker, this can be hard. Enroll in a stop-smoking program to improve your chance of success. Learning how to handle stress better is an important part of any program to lower blood pressure. Learn about relaxation methods such as meditation, yoga or biofeedback. If medicines were prescribed, take them exactly as directed. Missing doses may cause your blood pressure get out of control. Consider buying an automatic blood pressure machine (available at most pharmacies). Use this to monitor your blood pressure at home and report the results to your doctor. Follow Up: Regular visits to your own physician for blood pressure checks and medicine adjustment is an important part of your care. Make a follow-up appointment as directed by our staff. Get Prompt Medical Attention if any of the following occur: Chest pain or shortness of breath Severe headache Throbbing or rushing sound in the ears Nosebleed Sudden severe abdominal pain Extreme drowsiness, confusion or fainting Dizziness or vertigo (dizziness with spinning sensation) Weakness of an arm or leg or one side of the face Difficulty with speech or vision You have been given the following additional information: Hypertension, Established (Electronically signed by Mckay Moran DO 10/19/2016 16:31)
--- NOTE | 2016-10-19 18:44 | Progress Note ---
Subjective General ADVANCED CARE PLAN History of Present Illness The patient is a 80-year-old white female with a significant past medical history of SLE, degenerative joint disease, DVT/pulmonary embolism, paroxysmal atrial fibrillation, carpal tunnel syndrome, who presented to [facility] emergency department on the day of admission with complaints of shortness of breath, tremors following taking her first dose of Movantik. [facility] ER evaluation was consistent with probable adverse drug reaction to Movantik, elevated lipase rule out pancreatitis. Secondary to the above, the patient was admitted by David Alcaraz M.D. for further evaluation and treatment. For other history present illness, past medical history, family history, social history, review of systems, and admission physical examination please see the patient's history and physical examination and ER visit note in the patient's medical record. A discussion was undertaken with the patient regarding previous advance care arrangements/decisions. The following advanced directives were noted by the patient and discussed with me at the time of admission. ADVANCED DIRECTIVES: 1. Living well: Yes 2. POLST: No 3. CODE STATUS: Full Code 4. Durable Power [employer] Health care: Yes, spouse 5. Donor card: No The patient has expressed interest in pursuing full resuscitative efforts at this time. Her CODE STATUS is entered as FULL CODE The patient's wishes were documented in the chart and orders regarding the patient's wishes entered into the [employer]PO[employer] system. The "Advance Care Plan Document" was distributed to patient to discuss with her family. Less than 30 minutes was spent in performing the above tasks and documentation of the patient's advanced care plan.
--- NOTE | 2016-10-19 18:44 | Progress Note ---
Subjective General ADVANCED CARE PLAN History of Present Illness The patient is a 80-year-old white female with a significant past medical history of SLE, degenerative joint disease, DVT/pulmonary embolism, paroxysmal atrial fibrillation, carpal tunnel syndrome, who presented to [facility] emergency department on the day of admission with complaints of shortness of breath, tremors following taking her first dose of Movantik. [facility] ER evaluation was consistent with probable adverse drug reaction to Movantik, elevated lipase rule out pancreatitis. Secondary to the above, the patient was admitted by David Alcaraz M.D. for further evaluation and treatment. For other history present illness, past medical history, family history, social history, review of systems, and admission physical examination please see the patient's history and physical examination and ER visit note in the patient's medical record. A discussion was undertaken with the patient regarding previous advance care arrangements/decisions. The following advanced directives were noted by the patient and discussed with me at the time of admission. ADVANCED DIRECTIVES: 1. Living well: Yes 2. POLST: No 3. CODE STATUS: Full Code 4. Durable Power [employer] Records Analyst Health care: Yes, spouse 5. Donor card: No The patient has expressed interest in pursuing full resuscitative efforts at this time. Her CODE STATUS is entered as FULL CODE The patient's wishes were documented in the chart and orders regarding the patient's wishes entered into the [employer]POE system. The "Advance Care Plan Document" was distributed to patient to discuss with her family. Less than 30 minutes was spent in performing the above tasks and documentation of the patient's advanced care plan.
[2016-10-19 22:44] VITALS: BP 140/70
[2016-10-20 02:53] VITALS: BP 156/55
[2016-10-20] MEDS ORDERED: COUMADIN1 MG PO (05:08)
[2016-10-20] MEDS ORDERED: LASIX20 MG PO (05:10)
[2016-10-20] MEDS ORDERED: ASPIRIN ADULT L81 MG PO (05:15)
[2016-10-20] MEDS ORDERED: PREDNISONE5 MG PO (05:17)
[2016-10-20] MEDS ORDERED: COMBIVENT RESPIMAT IN (05:20)
[2016-10-20] MEDS ORDERED: BONIVA150 MG PO (05:31)
[2016-10-20 05:45] VITALS: BP 133/60
--- NOTE | 2016-10-20 07:28 | Provider's Discharge Care Plan ---
Problem, Goal, Plan Problem List 1. Adverse drug reaction Goals: Improve disease control, Improve function, Prevent disease progress Instructions: Follow up as directed, Take meds as directed, Stop using Movantik until discussed with your family physician 2. Hypokalemia Goals: Improve disease control, Prevent disease progress Instructions: Follow up as directed, Take meds as directed 3. Chronic anticoagulation Goals: Improve disease control, Prevent disease progress Instructions: Follow up as directed, Take meds as directed, Have your INR rechecked at your family physician's office on Sunday, October 23, 2016.
[2016-10-20] MEDS ORDERED: SENNA-LAX8.6 MG PO (07:31)
[2016-10-20] MEDS ORDERED: PEG 3351 PO (07:31)
[2016-10-20] MEDS ORDERED: KLOR-CON M2020 MEQ PO (07:32)
--- NOTE | 2016-10-20 07:41 | Discharge Summary ---
Discharge Summary Report Admit Date 10/19/16 Discharge Date 10/20/16 Admission Diagnosis 1. Adverse drug reaction-Movantik 2. Hypokalemia 3. Elevated lipase Discharge Diagnosis 1. Adverse drug reaction-Movantik 2. Hypokalemia-resolved 3. Elevated lipase-resolved Brief History The patient is a 80-year-old white female with a significant past medical history of SLE, degenerative joint disease, DVT/pulmonary embolism, paroxysmal atrial fibrillation, carpal tunnel syndrome, who presented to [facility] emergency department on the day of admission with complaints of shortness of breath, tremors following taking her first dose of Movantik. [facility] ER evaluation was consistent with probable adverse drug reaction to Movantik, elevated lipase rule out pancreatitis. Secondary to the above, the patient was admitted by David Alcaraz M.D. for further evaluation and treatment. For other history present illness, past medical history, family history, social history, review of systems, and admission physical examination please see the patient's history and physical examination and ER visit note in the patient's medical record. Hospital Course The following problems and their management were noted during the patient's hospitalization: 1. Adverse drug reaction-Movantik The patient presented with findings consistent with adverse drug reaction following ingestion of Movantik. The patient's symptoms rapidly resolved. On the day of discharge she was at baseline state. No further symptoms or complaints. She was instructed not to use Movantik until she sees her family physician follow-up to discuss ongoing use of the medication. The patient was placed on senna 8.6 mg by mouth twice a day and MiraLAX 17 g in 8 ounces of water twice a day at discharge. 2. Hypokalemia The patient was noted to have mild hypokalemia on admission. She was treated with IV/oral supplementation. Potassium normalized prior to discharge. She was discharged on KCl 20 mEq by mouth daily. 3. Elevated lipase The patient was admitted with findings of elevated lipase. This was less than 3 times the upper limit of normal. Amylase was noted to be normal. Follow-up lipase and amylase level was normal. The patient had no abdominal pain or other GI symptoms associated with this. The patient underwent abdominal ultrasound which was unremarkable. There were no other findings of pancreatitis. General Appearance Alert, Oriented X3, Cooperative, No acute distress Cardiovascular Regular Rate, Normal S1, Normal S2 Abdomen Normal bowel sounds, Soft, No tenderness Neurological Grossly normal Psych/Mental Status Mental status NL, Mood NL Lab/Imaging Laboratory Tests 10/20 10/19 10/19 10/19 0520 1920 1810 1130 Chemistry Plasma Sodium (136 - 145 mmol/L) 141 Plasma Potassium (3.5 - 5.1 mmol/L) 4.7 Plasma Chloride (98 - 107 mmol/L) 107 CO2 (Enzymatic) (21 - 32 mmol/L) 28 BUN (7 - 18 mg/dL) 17 Creatinine (0.6 - 1.3 mg/dL) 0.7 Est GFR ( Amer) (mL/min) >60 Est GFR (Non-Af Amer) (mL/min) >60 Glucose (70 - 110 mg/dL) 72 Plasma Calcium (8.5 - 10.1 mg/dL) 8.3 Total Bilirubin (0.0 - 1.0 mg/dL) 0.4 AST (15 - 37 U/L) 21 ALT (12 - 78 U/L) 22 Alkaline Phosphatase (46 - 116 U/L) 43 B-Natriuretic Peptide (5 - 100 pg/ml) 223 Total Protein (6.4 - 8.2 g/dL) 5.4 Albumin (3.3 - 5.0 g/dL) 2.8 Amylase (25 - 115 U/L) 36 49 Lipase (73 - 393 U/L) 130 281 Hematology WBC (4.5 - 11.5 K/uL) 6.7 RBC (4.00 - 5.20 M/uL) 3.39 Hgb (12.0 - 16.0 gm/dL) 10.3 Hct (36.0 - 46.0 %) 31.3 MCV (80 - 100 fL) 92 MCH (26 - 34 pg) 31 RDW (11.6 - 14.8 %) 13.2 Neut % (Auto) (50 - 75 %) 88.8 Lymph % (Auto) (25 - 40 %) 6.5 [place] % (Auto) (3 - 14 %) 4.3 Eos % (Auto) (0 - 4 %) 0.1 Baso % (Auto) (0 - 2 %) 0.3 Plt Count, EDTA (150 - 400 K/uL) 168 PUBS MCHC (31 - 37 g/dL) 33 Urines Urine Color YELLOW Urine Appearance CLEAR Urine pH (5.0 - 8.0) 6.0 Ur Specific [place] (1.010 - 1.030) 1.010 Urine Protein (NEGATIVE) NEGATIVE Urine Ketones (NEGATIVE) TRACE Urine Blood (NEGATIVE) 2+ Urine Nitrite (NEGATIVE) NEGATIVE Urine Bilirubin (NEGATIVE) NEGATIVE Urine Urobilinogen (0.2 - 1.0 EU/dL) 0.2 Ur Leukocyte Esterase (NEGATIVE) NEGATIVE Urine RBC (0 - 1 rbc/hpf) 1-3 Urine WBC (0 - 1 wbc/hpf) 0-1 Ur Epithelial Cells (0 - 5 EPI/hpf) 0-1 Urine Bacteria (NONE SEEN) NONE SEEN Urine Glucose (NEGATIVE) NEGATIVE Urine Comment CULT NOT INDICATED 10/19 10/19 1130 1106 Chemistry Plasma Sodium (136 - 145 mmol/L) 140 Plasma Potassium (3.5 - 5.1 mmol/L) 3.4 Plasma Chloride (98 - 107 mmol/L) 102 CO2 (Enzymatic) (21 - 32 mmol/L) 29 BUN (7 - 18 mg/dL) 20 Creatinine (0.6 - 1.3 mg/dL) 0.8 Est GFR ( Amer) (mL/min) >60 Est GFR (Non-Af Amer) (mL/min) >60 Glucose (70 - 110 mg/dL) 94 Plasma Calcium (8.5 - 10.1 mg/dL) 9.4 Plasma Magnesium (1.8 - 2.4 mg/dL) 1.8 Total Bilirubin (0.0 - 1.0 mg/dL) 0.4 AST (15 - 37 U/L) 21 ALT (12 - 78 U/L) 19 Alkaline Phosphatase (46 - 116 U/L) 48 Creatine Kinase (24 - 260 U/L) 57 Troponin (0.00 - 1.5 ng/mL) <0.05 Total Protein (6.4 - 8.2 g/dL) 7.2 Albumin (3.3 - 5.0 g/dL) 3.7 Triglycerides (30 - 200 mg/dL) 59 Cholesterol (140 - 200 mg/dL) 207 LDL Cholesterol, Calc (mg/dL) 125 HDL Cholesterol (32 - 96 mg/dL) 71 LDL/HDL Ratio 1.8 Cholesterol/HDL Ratio 2.9 Coronary Risk Interp (0.4 - 1.0) 0.6 Amylase (25 - 115 U/L) 86 Cancelled Lipase (73 - 393 U/L) 1109 Cancelled TSH 3rd Generation (0.30 - 3.74 uIU/mL) 1.129 Cancelled Coagulation INR (0.8 - 1.2) 2.9 Hematology WBC (4.5 - 11.5 K/uL) 13.3 RBC (4.00 - 5.20 M/uL) 4.16 Hgb (12.0 - 16.0 gm/dL) 12.6 Hct (36.0 - 46.0 %) 38.7 MCV (80 - 100 fL) 93 MCH (26 - 34 pg) 30 RDW (11.6 - 14.8 %) 13.2 Neut % (Auto) (50 - 75 %) 74.7 Lymph % (Auto) (25 - 40 %) 18.2 [place] % (Auto) (3 - 14 %) 6.1 Eos % (Auto) (0 - 4 %) 0.5 Baso % (Auto) (0 - 2 %) 0.5 Plt Count, EDTA (150 - 400 K/uL) 238 PUBS MCHC (31 - 37 g/dL) 33 Toxicology Urine Opiates Screen Cancelled Urine Methadone Screen Cancelled Ur Barbiturates Screen Cancelled U Amphetamin/Meth Scrn Cancelled MDMA (Ecstasy) Screen Cancelled U Benzodiazepines Scrn Cancelled Urine Cocaine Screen Cancelled U Cannabinoids Screen Cancelled Urines Urine Color Cancelled Urine Appearance Cancelled Urine pH Cancelled Ur Specific [place] Cancelled Urine Protein Cancelled Urine Ketones Cancelled Urine Blood Cancelled Urine Nitrite Cancelled Urine Bilirubin Cancelled Urine Urobilinogen Cancelled Ur Leukocyte Esterase Cancelled Urine RBC Cancelled Urine WBC Cancelled Ur Epithelial Cells Cancelled Urine Bacteria Cancelled Urine Glucose Cancelled Discharge Instructions/Meds For other recommendations regarding discharge diet, activity, followup, and discharge medications please see the patient's discharge instructions. Discharge condition: Good, improved Greater than 30 min. was spent in the patient's discharge preparation including discharge interview and physical examination, progress note, discharge instructions, and discharge summary The patient was interviewed and examined on the day of discharge. E&M Codes Discharge: Observation - All/[id number]
[2016-10-20 11:06] VITALS: BP 128/46
== END 2016-10-20 12:59 | disposition home or self-care (01) ==
LOC: ED SRH 10:38 → TRANS SRH 13:40 → ACUTE2 SRH 16:10
PROVIDERS: ADMIT Emergency Medicine
DX: R25.8 Other abnormal involuntary movements (principal); T50.7X5A Adverse effect of analeptics and opioid receptor antagonists, initial encounter; E87.6 Hypokalemia; R74.8 Abnormal levels of other serum enzymes; G89.29 Other chronic pain; Z79.891 Long term (current) use of opiate analgesic; I48.0 Paroxysmal atrial fibrillation; Z79.01 Long term (current) use of anticoagulants; J44.9 Chronic obstructive pulmonary disease, unspecified; I10 Essential (primary) hypertension; M32.9 Systemic lupus erythematosus, unspecified; E03.9 Hypothyroidism, unspecified
CPT/HCPCS: 29230; 29243; 29244; 29259; 29264; 81460; 85241; 90004; 90074; 90100; 90616; 91320; 92235; 92530; 92610; 92690; 92720; 93140; 94060; 95059